=== PATIENT | male | born 1970 | race Caucasian/White ===

== ENCOUNTER 2017-12-22 14:07 | Emergency (ER) | payer OTHER ==
[~2017-12-22] VITALS: Wt 113.4 kg
[~2017-12-22 14:07] MED LIST: AUGMENTIN 500 M1 TAB PO; DIABETA,MICRO1.25 MG PO; DIABETA5 MG PO; KEFLEX500 MG PO; LEVOFLOXACIN500 MG PO; LIPITOR10 MG PO; METFORMIN1000 MG PO; NKHM; NSAID; PERCOCET 325 MG1 TA7 PO; VICODIN ES 7501 TAB PO; VICTOZA 3-PAK6 MG/ML SC
[2017-12-22 14:21] LABS: BASO # 0.1 10*3/uL (0.0-0.1); BASO % 0.4 % (0.0-1.0); EOS # 0.2 10*3/uL (0.0-0.4); EOS % 1.6 % (1.0-4.0); HEMATOCRIT 45.2 % (42.0-52.0); LYMPH % 14.9 % (27.0-41.0); MEAN CELL VOLUME 90.4 fl (80.0-94.0); MEAN CORPUSCULAR HGB CONC 33.2 g/dl (33.0-37.0); MEAN PLATELET VOLUME 10.1 fl (9.6-12.3); MONO # 0.9 10*3/uL (0.1-1.0); MONO % 6.6 % (3.0-9.0); NEUT # 10.2 10*3/uL (2.3-7.9); NEUT % 76.1 % (47.0-73.0); PLATELET COUNT AUTOMATED 164 10*3/uL (130-400); RED CELL DISTRI WIDTH 12.8 % (0-14.5); WHITE BLOOD COUNT 13.4 10*3/uL (4.8-10.8)
[2017-12-22 14:37] LABS: ALBUMIN 3.8 gm/dl (3.1-4.5); ALKALINE PHOSPHATASE 119 U/L (45-117); BUN 9 mg/dl (7-24); CHLORIDE 102 mmol/L (98-107); CREATININE 1.19 mg/dL (0.70-1.30); POTASSIUM 4.5 mmol/L (3.5-5.1); SGOT/AST 35 IU/L (3-35); SGPT/ALT 52 U/L (12-78); SODIUM 137 mmol/L (136-145); TOTAL PROTEIN 8.1 gm/dL (6.4-8.2)
[2017-12-22 15:04] LABS: BILIRUBIN NEGATIVE (NEGATIVE); BLOOD 3+ (NEGATIVE); CLARITY SL CLOUDY (CLEAR); COLOR YELLOW (YELLOW); GLUCOSE 3+ (NEGATIVE); KETONE TRACE (NEGATIVE); LEUKO ESTERASE NEGATIVE (NEGATIVE); NITRITE NEGATIVE (NEGATIVE); SPECIFIC GRAVITY >= 1.030 (1.005-1.030); UROBILINOGEN 0.2 E.U./dl (0.2-1.0)
[2017-12-22 15:27] LABS: EPITHELIAL CELLS 0-2; RBC 41-50 rbc/hpf (0-2)
[2017-12-22 16:10] VITALS: BP 114/78
[2017-12-22] MEDS ORDERED: FLOMAX0.4 MG PO (17:32)
[2017-12-22] MEDS ORDERED: NORCO 5-325 TA1 EACH PO (17:32)
[2017-12-22] MEDS ORDERED: NAPROSYN500 MG PO (17:32)
== END 2017-12-22 17:45 | disposition home or self-care (01) ==
LOC: ED 14:07
PROVIDERS: Nurse Practitioner Family
DX: N20.0 Calculus of kidney (principal); Z79.899 Other long term (current) drug therapy; Z87.442 Personal history of urinary calculi

== ENCOUNTER 2018-07-22 06:57 | Emergency (ER) | payer OTHER ==
[~2018-07-22] VITALS: Ht 187.9 cm; Wt 142.9 kg
[~2018-07-22 06:57] MED LIST changes: +FLOMAX0.4 MG PO; +NAPROSYN500 MG PO; +NORCO 5-325 TA1 EACH PO
[2018-07-22] MEDS ORDERED: SODIUM BICARBO650 MG PO (07:08)
[2018-07-22] MEDS ORDERED: Percocet 325 MG1 TAB PO (07:09)
[2018-07-22 07:24] LABS: BASO # 0.1 10*3/uL (0.0-0.1); BASO % 0.4 % (0.0-1.0); EOS # 0.3 10*3/uL (0.0-0.4); EOS % 2.3 % (1.0-4.0); HEMATOCRIT 42.4 % (42.0-52.0); HEMOGLOBIN 14.3 g/dl (14.0-18.0); LYMPH # 1.8 10*3/uL (1.3-4.4); LYMPH % 12.6 % (27.0-41.0); MEAN CELL VOLUME 91.2 fl (80.0-94.0); MEAN CORPUSCULAR HGB 30.8 pg (27.0-31.0); MEAN CORPUSCULAR HGB CONC 33.7 g/dl (33.0-37.0); MEAN PLATELET VOLUME 9.5 fl (9.6-12.3); MONO # 1.2 10*3/uL (0.1-1.0); MONO % 8.5 % (3.0-9.0); NEUT # 10.6 10*3/uL (2.3-7.9); NEUT % 75.8 % (47.0-73.0); PLATELET COUNT AUTOMATED 193 10*3/uL (130-400); RED BLOOD COUNT 4.65 10*6/uL (4.50-5.90); RED CELL DISTRI WIDTH 13.1 % (0-14.5); WHITE BLOOD COUNT 14.1 10*3/uL (4.8-10.8)
[2018-07-22 07:39] LABS: ALBUMIN 3.4 gm/dl (3.1-4.5); CREATININE 2.48 mg/dL (0.70-1.30); POTASSIUM 4.3 mmol/L (3.5-5.1); TOTAL PROTEIN 8.1 gm/dL (6.4-8.2)
[2018-07-22 07:40] LABS: BILIRUBIN NEGATIVE (NEGATIVE); BLOOD 3+ (NEGATIVE); CLARITY CLOUDY (CLEAR); COLOR YELLOW (YELLOW); GLUCOSE 2+ (NEGATIVE); KETONE TRACE (NEGATIVE); LEUKO ESTERASE 1+ (NEGATIVE); NITRITE NEGATIVE (NEGATIVE); PH 5.5 (5.0-9.0); SPECIFIC GRAVITY 1.025 (1.005-1.030); UROBILINOGEN 0.2 E.U./dl (0.2-1.0)
[2018-07-22 07:47] LABS: BACTERIA 3+; RBC 31-40 rbc/hpf (0-2); WBC 41-50 wbc/hpf (0-5)
[2018-07-22 07:52] LABS: ACT PARTIAL THROMBO TIME 24.3 SECONDS (20.8-31.5)
[2018-07-22 11:17] VITALS: BP 125/65
== END 2018-07-22 11:35 | disposition short-term general hospital (02) ==
LOC: ED 06:57
PROVIDERS: Emergency Medicine
DX: N17.9 Acute kidney failure, unspecified (principal); N20.0 Calculus of kidney; E66.01 Morbid (severe) obesity due to excess calories; E11.9 Type 2 diabetes mellitus without complications; Z87.442 Personal history of urinary calculi; Z79.899 Other long term (current) drug therapy; Z79.84 Long term (current) use of oral hypoglycemic drugs

== ENCOUNTER → 2018-08-02 | Outpatient (CLI) | payer OTHER ==
[~2018-08-02] MED LIST changes: +CIPRO500 MG PO; +Percocet 325 MG1 TAB PO; +SODIUM BICARBO650 MG PO
[2018-08-02 15:48] LABS: ACT PARTIAL THROMBO TIME 24.7 SECONDS (20.8-31.5)
== END | disposition home or self-care (01) ==
LOC: LAB 14:54
PROVIDERS: Urology
DX: R31.9 Hematuria, unspecified (principal)

== ENCOUNTER → 2018-08-31 | Outpatient (CLI) | payer OTHER ==
[2018-09-08 14:04] LABS: BUSHITE 0.03 ratio (0.00-3.00); CALCIUM OXALATE 1.19 ratio (0.00-6.00); CALCIUM, URINE 1.6 mg/dL (Not Estab.); CALCIUM, URINE 40.5 mg/24 hr (100.0-300.0); CITRIC ACID (CITRATE) 648 mg/24 hr (320-1240); CREATININE, URINE 1702.7 mg/24 hr (1000.0-2000.0); CREATININE, URINE 67.3 mg/dL (Not Estab.); MAGNESIUM, URINE 3.1 mg/dL (Not Estab.); OSMOLALITY, URINE 397 (300-900); SODIUM, URINE 162 (58-337); SODIUM, URINE 64 mmol/L (Not Estab.); STRUVITE 0.01 ratio (0.00-1.00); URIC ACID 1.53 ratio (0.00-1.20); pH 24 HR URINE 5.3 (.)
== END | disposition home or self-care (01) ==
LOC: LAB 17:26
PROVIDERS: Nurse Practitioner Family
DX: N20.0 Calculus of kidney (principal)

== ENCOUNTER → 2018-09-01 | Outpatient (CLI) | payer OTHER | END | disposition home or self-care (01) | LOC: US 14:49 | DX: N13.2 Hydronephrosis with renal and ureteral calculous obstruction (principal); N13.39 Other hydronephrosis; N28.1 Cyst of kidney, acquired ==

== ENCOUNTER → 2018-09-17 | Outpatient (CLI) | payer OTHER ==
[2018-09-17 12:58] LABS: BILIRUBIN NEGATIVE (NEGATIVE); BLOOD 3+ (NEGATIVE); CLARITY SL CLOUDY (CLEAR); COLOR YELLOW (YELLOW); GLUCOSE TRACE (NEGATIVE); KETONE NEGATIVE (NEGATIVE); LEUKO ESTERASE 1+ (NEGATIVE); NITRITE NEGATIVE (NEGATIVE); PH 5.5 (5.0-9.0); SPECIFIC GRAVITY 1.015 (1.005-1.030); UROBILINOGEN 0.2 E.U./dl (0.2-1.0)
[2018-09-17 13:07] LABS: RBC TNTC rbc/hpf (0-2)
== END | disposition home or self-care (01) ==
LOC: LAB 12:32
PROVIDERS: Urology
DX: R31.9 Hematuria, unspecified (principal)

== ENCOUNTER → 2018-10-07 | Outpatient (CLI) | payer OTHER | END | disposition home or self-care (01) | LOC: RAD 15:11 | DX: N20.0 Calculus of kidney (principal); R31.9 Hematuria, unspecified ==

== ENCOUNTER → 2018-12-10 | Outpatient (CLI) | payer OTHER | END | disposition home or self-care (01) | LOC: RAD 15:21 | DX: N20.0 Calculus of kidney (principal) ==

== ENCOUNTER 2018-12-11 05:12 | Emergency (ER) | payer OTHER ==
[~2018-12-11] VITALS: Ht 187.9 cm; Wt 138.3 kg
--- NOTE | ~2018-12-11 | EKG ---
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
[~2018-12-11 05:12] MED LIST changes: -CIPRO500 MG PO
[2018-12-11 05:58] LABS: BASO % 0.3 % (0.0-1.0); EOS # 0.3 10*3/uL (0.0-0.4); EOS % 2.2 % (1.0-4.0); HEMATOCRIT 38.4 % (42.0-52.0); HEMOGLOBIN 12.6 g/dl (14.0-18.0); LYMPH % 14.2 % (27.0-41.0); MEAN CELL VOLUME 90.1 fl (80.0-94.0); MEAN CORPUSCULAR HGB 29.6 pg (27.0-31.0); MEAN CORPUSCULAR HGB CONC 32.8 g/dl (33.0-37.0); MEAN PLATELET VOLUME 9.1 fl (9.6-12.3); MONO % 6.7 % (3.0-9.0); NEUT # 10.8 10*3/uL (2.3-7.9); NEUT % 75.8 % (47.0-73.0); PLATELET COUNT AUTOMATED 287 10*3/uL (130-400); RED BLOOD COUNT 4.26 10*6/uL (4.50-5.90); RED CELL DISTRI WIDTH 13.2 % (0-14.5); WHITE BLOOD COUNT 14.3 10*3/uL (4.8-10.8)
[2018-12-11 06:07] LABS: ALBUMIN 3.3 gm/dl (3.1-4.5); ALKALINE PHOSPHATASE 128 U/L (45-117); BUN 11 mg/dl (7-24); CHLORIDE 105 mmol/L (98-107); CREATININE 1.27 mg/dL (0.70-1.30); LIPASE 247 U/L (73-393); POTASSIUM 3.6 mmol/L (3.5-5.1); SGOT/AST 22 IU/L (3-35); SGPT/ALT 24 U/L (12-78); SODIUM 137 mmol/L (136-145); TOTAL PROTEIN 7.6 gm/dL (6.4-8.2)
[2018-12-11 06:33] VITALS: BP 127/87
[2018-12-11 07:03] LABS: BILIRUBIN NEGATIVE (NEGATIVE); BLOOD 3+ (NEGATIVE); CLARITY SL CLOUDY (CLEAR); COLOR YELLOW (YELLOW); GLUCOSE NEGATIVE (NEGATIVE); KETONE NEGATIVE (NEGATIVE); LEUKO ESTERASE 1+ (NEGATIVE); NITRITE NEGATIVE (NEGATIVE); UROBILINOGEN 0.2 E.U./dl (0.2-1.0)
[2018-12-11 07:04] LABS: BACTERIA 2+; EPITHELIAL CELLS 21-30; RBC 31-40 rbc/hpf (0-2); WBC 31-40 wbc/hpf (0-5)
[2018-12-11] MEDS ORDERED: CIPRO500 MG PO (08:33)
== END 2018-12-11 08:40 | disposition home or self-care (01) ==
LOC: ED 05:12
PROVIDERS: Emergency Medicine Emergency Medical Services
DX: N39.0 Urinary tract infection, site not specified (principal); R19.7 Diarrhea, unspecified; R11.2 Nausea with vomiting, unspecified; Z87.442 Personal history of urinary calculi; Z79.899 Other long term (current) drug therapy

== ENCOUNTER → 2018-12-19 | Outpatient (CLI) | payer OTHER ==
[~2018-12-19] MED LIST changes: +CIPRO500 MG PO
== END | disposition home or self-care (01) ==
LOC: CT 12:21
DX: N13.2 Hydronephrosis with renal and ureteral calculous obstruction (principal); K44.9 Diaphragmatic hernia without obstruction or gangrene; K76.0 Fatty (change of) liver, not elsewhere classified; K57.90 Diverticulosis of intestine, part unspecified, without perforation or abscess without bleeding

== ENCOUNTER 2019-02-08 12:08 | Emergency (ER) | payer OTHER ==
[~2019-02-08] VITALS: Wt 140.6 kg
[2019-02-08 12:41] LABS: COLOR YELLOW (YELLOW)
[2019-02-08 12:42] LABS: BILIRUBIN NEGATIVE (NEGATIVE); BLOOD 3+ (NEGATIVE); CLARITY CLOUDY (CLEAR); GLUCOSE NEGATIVE (NEGATIVE); KETONE NEGATIVE (NEGATIVE); LEUKO ESTERASE 3+ (NEGATIVE); NITRITE NEGATIVE (NEGATIVE); SPECIFIC GRAVITY 1.015 (1.005-1.030); UROBILINOGEN 0.2 E.U./dl (0.2-1.0)
[2019-02-08 12:46] LABS: WBC TNTC wbc/hpf (0-5)
[2019-02-08 13:08] VITALS: BP 133/87
[2019-02-08 13:10] LABS: BASO % 0.2 % (0.0-1.0); EOS # 0.4 10*3/uL (0.0-0.4); EOS % 2.1 % (1.0-4.0); HEMATOCRIT 37.6 % (42.0-52.0); HEMOGLOBIN 12.6 g/dl (14.0-18.0); LYMPH # 1.1 10*3/uL (1.3-4.4); LYMPH % 6.8 % (27.0-41.0); MEAN CELL VOLUME 87.9 fl (80.0-94.0); MEAN CORPUSCULAR HGB 29.4 pg (27.0-31.0); MEAN CORPUSCULAR HGB CONC 33.5 g/dl (33.0-37.0); MEAN PLATELET VOLUME 9.1 fl (9.6-12.3); MONO # 1.4 10*3/uL (0.1-1.0); MONO % 8.5 % (3.0-9.0); NEUT # 13.7 10*3/uL (2.3-7.9); NEUT % 81.7 % (47.0-73.0); PLATELET COUNT AUTOMATED 182 10*3/uL (130-400); RED BLOOD COUNT 4.28 10*6/uL (4.50-5.90); RED CELL DISTRI WIDTH 13.2 % (0-14.5); WHITE BLOOD COUNT 16.8 10*3/uL (4.8-10.8)
[2019-02-08 13:25] LABS: CREATININE 5.22 mg/dL (0.70-1.30); POTASSIUM 4.5 mmol/L (3.5-5.1); TOTAL PROTEIN 7.2 gm/dL (6.4-8.2)
== END 2019-02-08 15:22 | disposition short-term general hospital (02) ==
LOC: ED 12:08
PROVIDERS: Nurse Practitioner Family
DX: N20.9 Urinary calculus, unspecified (principal); N13.30 Unspecified hydronephrosis; N17.9 Acute kidney failure, unspecified; Z79.899 Other long term (current) drug therapy; Z87.442 Personal history of urinary calculi

== ENCOUNTER 2019-02-10 22:36 | Emergency (ER) | payer OTHER ==
[~2019-02-10] VITALS: Ht 187.9 cm; Wt 140.6 kg
[2019-02-10 22:36] VITALS: BP 137/77
== END 2019-02-10 23:55 | disposition home or self-care (01) ==
LOC: ED 22:36
DX: N99.89 Other postprocedural complications and disorders of genitourinary system (principal); Z79.899 Other long term (current) drug therapy; Z87.442 Personal history of urinary calculi

== ENCOUNTER → 2019-02-19 | Outpatient (CLI) | payer OTHER ==
[2019-02-19 12:27] LABS: CREATININE 1.66 mg/dL (0.70-1.30)
== END | disposition home or self-care (01) ==
LOC: LAB 12:00
PROVIDERS: Internal Medicine
DX: E11.9 Type 2 diabetes mellitus without complications (principal)

== ENCOUNTER → 2019-02-24 | Outpatient (CLI) | payer OTHER | END | disposition home or self-care (01) | LOC: RAD 11:53 | DX: N20.0 Calculus of kidney (principal) ==

== ENCOUNTER → 2019-03-03 | Outpatient (CLI) | payer OTHER | END | disposition home or self-care (01) | LOC: CT 08:59 | DX: K76.0 Fatty (change of) liver, not elsewhere classified (principal); K44.9 Diaphragmatic hernia without obstruction or gangrene; K57.30 Diverticulosis of large intestine without perforation or abscess without bleeding; N13.2 Hydronephrosis with renal and ureteral calculous obstruction ==

== ENCOUNTER 2019-03-20 23:51 | Emergency (ER) | payer OTHER ==
[~2019-03-20] VITALS: Ht 187.9 cm; Wt 134.7 kg
[2019-03-21 00:42] LABS: BASO % 0.2 % (0.0-1.0); EOS # 0.3 10*3/uL (0.0-0.4); EOS % 2.1 % (1.0-4.0); HEMATOCRIT 30.4 % (42.0-52.0); HEMOGLOBIN 9.8 g/dl (14.0-18.0); LYMPH # 1.5 10*3/uL (1.3-4.4); LYMPH % 12.1 % (27.0-41.0); MEAN CELL VOLUME 90.2 fl (80.0-94.0); MEAN CORPUSCULAR HGB 29.1 pg (27.0-31.0); MEAN CORPUSCULAR HGB CONC 32.2 g/dl (33.0-37.0); MEAN PLATELET VOLUME 9.3 fl (9.6-12.3); MONO # 0.8 10*3/uL (0.1-1.0); MONO % 6.9 % (3.0-9.0); NEUT # 9.4 10*3/uL (2.3-7.9); PLATELET COUNT AUTOMATED 236 10*3/uL (130-400); RED BLOOD COUNT 3.37 10*6/uL (4.50-5.90); RED CELL DISTRI WIDTH 13.9 % (0-14.5); WHITE BLOOD COUNT 12.1 10*3/uL (4.8-10.8)
[2019-03-21 00:59] LABS: ALBUMIN 2.3 gm/dl (3.1-4.5); CREATININE 1.75 mg/dL (0.70-1.30)
[2019-03-21 01:20] LABS: BILIRUBIN NEGATIVE (NEGATIVE); BLOOD 3+ (NEGATIVE); CLARITY SL CLOUDY (CLEAR); COLOR YELLOW (YELLOW); GLUCOSE 3+ (NEGATIVE); KETONE NEGATIVE (NEGATIVE); LEUKO ESTERASE 2+ (NEGATIVE); NITRITE NEGATIVE (NEGATIVE); SPECIFIC GRAVITY <= 1.005 (1.005-1.030); UROBILINOGEN 0.2 E.U./dl (0.2-1.0)
[2019-03-21 01:34] LABS: RBC 16-20 rbc/hpf (0-2); WBC 41-50 wbc/hpf (0-5); YEAST 2+
[2019-03-21 03:00] VITALS: BP 142/80
== END 2019-03-21 03:50 | disposition short-term general hospital (02) ==
LOC: ED 23:51
PROVIDERS: Physician Assistant
DX: A41.9 Sepsis, unspecified organism (principal); R65.20 Severe sepsis without septic shock; Z79.899 Other long term (current) drug therapy; Z79.2 Long term (current) use of antibiotics

== ENCOUNTER → 2019-04-28 | Outpatient (CLI) | payer OTHER | END | disposition home or self-care (01) | LOC: CT 10:32 | DX: K76.0 Fatty (change of) liver, not elsewhere classified (principal); N20.0 Calculus of kidney ==

== ENCOUNTER → 2019-06-02 | Outpatient (CLI) | payer OTHER | END | disposition home or self-care (01) | LOC: US 11:53 | DX: N20.0 Calculus of kidney (principal) ==

== ENCOUNTER → 2019-10-07 | Outpatient (CLI) | payer BC ==
[2019-10-07 08:57] LABS: BASO # 0.1 10*3/uL (0.0-0.1); BASO % 0.4 % (0.0-1.0); EOS # 0.4 10*3/uL (0.0-0.4); EOS % 3.6 % (1.0-4.0); LYMPH # 2.7 10*3/uL (1.3-4.4); LYMPH % 23.8 % (27.0-41.0); MEAN CELL VOLUME 89.6 fl (80.0-94.0); MEAN CORPUSCULAR HGB 28.9 pg (27.0-31.0); MEAN CORPUSCULAR HGB CONC 32.2 g/dl (33.0-37.0); MEAN PLATELET VOLUME 10.1 fl (9.6-12.3); MONO # 0.8 10*3/uL (0.1-1.0); MONO % 6.9 % (3.0-9.0); NEUT # 7.5 10*3/uL (2.3-7.9); PLATELET COUNT AUTOMATED 171 10*3/uL (130-400); RED BLOOD COUNT 5.02 10*6/uL (4.50-5.90); RED CELL DISTRI WIDTH 14.4 % (0-14.5); WHITE BLOOD COUNT 11.5 10*3/uL (4.8-10.8)
[2019-10-07 09:34] LABS: ALBUMIN 3.7 gm/dl (3.1-4.5); BUN 26 mg/dl (7-24); CHLORIDE 109 mmol/L (98-107); POTASSIUM 3.9 mmol/L (3.5-5.1); SODIUM 140 mmol/L (136-145)
[2019-10-07 09:40] LABS: ALKALINE PHOSPHATASE 100 U/L (45-117); CREATININE 1.08 mg/dL (0.70-1.30); SGOT/AST 23 IU/L (3-35); SGPT/ALT 25 U/L (12-78); TOTAL PROTEIN 7.8 gm/dL (6.4-8.2)
== END | disposition home or self-care (01) ==
LOC: LAB 08:17
PROVIDERS: Nurse Practitioner Family
DX: D40.0 Neoplasm of uncertain behavior of prostate (principal); R53.83 Other fatigue

== ENCOUNTER → 2020-06-01 | Outpatient (CLI) | payer BC | END | disposition home or self-care (01) | LOC: COVID19 14:40 | PROVIDERS: ATTEND Internal Medicine | DX: Z20.828 Contact with and (suspected) exposure to other viral communicable diseases (principal) ==

== ENCOUNTER 2021-05-15 01:32 | Emergency (ER) | payer BC ==
[~2021-05-15] VITALS: Ht 187.9 cm; Wt 136.1 kg
[2021-05-15 11:50] VITALS: BP 133/106
[2021-05-15] MEDS ORDERED: PERCOCET 5-3251 EACH PO (12:07)
== END 2021-05-15 13:28 | disposition home or self-care (01) ==
LOC: ED 01:32
DX: S82.852A Displaced trimalleolar fracture of left lower leg, initial encounter for closed fracture (principal); W10.8XXA Fall (on) (from) other stairs and steps, initial encounter; Y93.89 Activity, other specified; Y92.89 Other specified places as the place of occurrence of the external cause; Y99.8 Other external cause status

== ENCOUNTER → 2021-05-18 | Day surgery (SDC) | payer BC ==
[2021-05-17 12:26] LABS: BASO % 0.3 % (0.0-1.0); EOS # 0.2 10*3/uL (0.0-0.4); HEMATOCRIT 45.7 % (42.0-52.0); LYMPH # 2.4 10*3/uL (1.3-4.4); LYMPH % 22.1 % (27.0-41.0); MEAN CELL VOLUME 89.1 fl (80.0-94.0); MEAN CORPUSCULAR HGB 29.2 pg (27.0-31.0); MEAN CORPUSCULAR HGB CONC 32.8 g/dl (33.0-37.0); MEAN PLATELET VOLUME 9.6 fl (9.6-12.3); MONO # 0.8 10*3/uL (0.1-1.0); MONO % 7.2 % (3.0-9.0); NEUT # 7.3 10*3/uL (2.3-7.9); NEUT % 67.8 % (47.0-73.0); PLATELET COUNT AUTOMATED 146 10*3/uL (130-400); RED BLOOD COUNT 5.13 10*6/uL (4.50-5.90); RED CELL DISTRI WIDTH 13.4 % (0-14.5); WHITE BLOOD COUNT 10.8 10*3/uL (4.8-10.8)
[2021-05-17 12:56] LABS: ALBUMIN 3.6 gm/dl (3.1-4.5); ALKALINE PHOSPHATASE 114 U/L (45-117); BUN 21 mg/dl (7-24); CHLORIDE 105 mmol/L (98-107); CREATININE 1.21 mg/dL (0.70-1.30); POTASSIUM 3.7 mmol/L (3.5-5.1); SGOT/AST 8 IU/L (3-35); SGPT/ALT 23 U/L (12-78); SODIUM 141 mmol/L (136-145); TOTAL PROTEIN 8.1 gm/dL (6.4-8.2)
[2021-05-18] VITALS (8 sets, daily range): BP systolic 112–159; BP diastolic 76–103
[~2021-05-18] VITALS: Ht 157.4 cm; Wt 136.1 kg
[~2021-05-18] MED LIST changes: +PERCOCET 5-3251 EACH PO
== END | disposition home or self-care (01) ==
LOC: SDC 05-17 12:00
PROVIDERS: ATTEND Orthopaedic Surgery
DX: S82.852A Displaced trimalleolar fracture of left lower leg, initial encounter for closed fracture (principal); E11.9 Type 2 diabetes mellitus without complications; W19.XXXA Unspecified fall, initial encounter; Y93.89 Activity, other specified; Y92.89 Other specified places as the place of occurrence of the external cause; Y99.8 Other external cause status

== ENCOUNTER → 2021-05-31 | Outpatient (CLI) | payer BC | LOC: ORTHO 01:09 | PROVIDERS: ATTEND Orthopaedic Surgery | DX: M24.672 Ankylosis, left ankle (principal); M25.472 Effusion, left ankle; M77.32 Calcaneal spur, left foot; S82.852D Displaced trimalleolar fracture of left lower leg, subsequent encounter for closed fracture with routine healing; X58.XXXD Exposure to other specified factors, subsequent encounter ==

== ENCOUNTER → 2021-07-03 | Outpatient (CLI) | payer BC | END | disposition home or self-care (01) | LOC: ORTHO 00:24 | PROVIDERS: ATTEND Orthopaedic Surgery | DX: S82.852D Displaced trimalleolar fracture of left lower leg, subsequent encounter for closed fracture with routine healing (principal); X58.XXXD Exposure to other specified factors, subsequent encounter ==

== ENCOUNTER → 2021-09-01 | Outpatient (CLI) | payer OTHER | END | disposition home or self-care (01) | LOC: ORTHO 01:54 | PROVIDERS: ATTEND Orthopaedic Surgery | DX: S82.852D Displaced trimalleolar fracture of left lower leg, subsequent encounter for closed fracture with routine healing (principal); X58.XXXD Exposure to other specified factors, subsequent encounter ==

== ENCOUNTER → 2022-03-14 | Outpatient (CLI) | payer OTHER | END | disposition home or self-care (01) | LOC: ORTHO 01:46 | PROVIDERS: ATTEND Orthopaedic Surgery | DX: S82.852D Displaced trimalleolar fracture of left lower leg, subsequent encounter for closed fracture with routine healing (principal); X58.XXXD Exposure to other specified factors, subsequent encounter ==

== ENCOUNTER 2023-01-27 13:53 | Emergency (ER) | payer BC ==
[~2023-01-27] VITALS: Ht 190.5 cm; Wt 136.1 kg
[2023-01-27 14:05] VITALS: BP 172/100
[2023-01-27] MEDS ORDERED: CEPHALEXIN500 M1 PO (14:29)
== END 2023-01-27 14:59 | disposition home or self-care (01) ==
LOC: ED 13:53
DX: S61.217A Laceration without foreign body of left little finger without damage to nail, initial encounter (principal); E11.9 Type 2 diabetes mellitus without complications; Z87.442 Personal history of urinary calculi; Z98.890 Other specified postprocedural states; W26.8XXA Contact with other sharp object(s), not elsewhere classified, initial encounter; Y93.89 Activity, other specified; Y92.89 Other specified places as the place of occurrence of the external cause; Y99.8 Other external cause status

== ENCOUNTER 2023-06-20 03:02 | Inpatient (IN) | payer OTHER ==
[~2023-06-20] VITALS: Ht 190.5 cm; Wt 130.6 kg
[~2023-06-20 03:02] MED LIST changes: +CEPHALEXIN500 M1 PO
[2023-06-20 03:18] VITALS: BP 167/98
[2023-06-20 03:48] LABS: BASO % 0.3 % (0.0-1.0); EOS # 0.2 10*3/uL (0.0-0.4); EOS % 2.2 % (1.0-4.0); HEMATOCRIT 47.6 % (42.0-52.0); LYMPH # 2.1 10*3/uL (1.3-4.4); LYMPH % 24.1 % (27.0-41.0); MEAN CELL VOLUME 89.3 fl (80.0-94.0); MEAN CORPUSCULAR HGB 29.1 pg (27.0-31.0); MEAN CORPUSCULAR HGB CONC 32.6 g/dl (33.0-37.0); MEAN PLATELET VOLUME 9.7 fl (9.6-12.3); MONO # 0.6 10*3/uL (0.1-1.0); MONO % 7.3 % (3.0-9.0); NEUT # 5.8 10*3/uL (2.3-7.9); NEUT % 65.5 % (47.0-73.0); PLATELET COUNT AUTOMATED 147 10*3/uL (130-400); RED BLOOD COUNT 5.33 10*6/uL (4.50-5.90); WHITE BLOOD COUNT 8.8 10*3/uL (4.8-10.8)
[2023-06-20 03:59] LABS: ACT PARTIAL THROMBO TIME 27.6 SECONDS (20.0-32.1)
[2023-06-20 04:09] LABS: ALKALINE PHOSPHATASE 100 U/L (46-116); BUN 21 mg/dl (9-23); CHLORIDE 109 mmol/L (98-107); POTASSIUM 3.6 mmol/L (3.4-5.1); SGPT/ALT 22 U/L (5-49); TOTAL PROTEIN 6.7 gm/dL (6.0-8.0)
[2023-06-20 07:12] VITALS: BP 155/88
[2023-06-20 10:02] LABS: FREE T4 0.97 ng/dl (0.89-1.76)
== END 2023-06-20 11:05 | disposition left against medical advice (07) | DRG 313 ==
LOC: ED 03:02 → EDHOLD 06:43
PROVIDERS: Emergency Medicine; Student in an Organized Health Care Education/Training Program; ADMIT Internal Medicine; ATTEND Internal Medicine
DX: R07.89 Other chest pain (principal); E11.65 Type 2 diabetes mellitus with hyperglycemia; E66.9 Obesity, unspecified; E87.8 Other disorders of electrolyte and fluid balance, not elsewhere classified; N28.1 Cyst of kidney, acquired; Z53.29 Procedure and treatment not carried out because of patient's decision for other reasons; N20.0 Calculus of kidney; Z68.36 Body mass index [BMI] 36.0-36.9, adult; Z79.82 Long term (current) use of aspirin; Z79.899 Other long term (current) drug therapy; Z87.442 Personal history of urinary calculi; Z87.81 Personal history of (healed) traumatic fracture

== ENCOUNTER 2023-10-11 16:09 | Emergency (ER) | payer OTHER ==
[~2023-10-11] VITALS: Ht 187.9 cm; Wt 131.5 kg
[2023-10-11 16:27] VITALS: BP 148/102
[2023-10-11] MEDS ORDERED: METFORMIN HYD1000 MG PO (16:33)
[2023-10-11] MEDS ORDERED: RYBELSUS14 MG PO (16:33)
[2023-10-11] MEDS ORDERED: HYZAAR 50-12.51 EACH PO (16:34)
[2023-10-11] MEDS ORDERED: VITAMIN D250 MCG PO (16:36)
[2023-10-11] MEDS ORDERED: LIPITOR40 MG PO (16:36)
[2023-10-11] MEDS ORDERED: ASPIRIN81 M1 PO (16:37)
[2023-10-11] MEDS ORDERED: ALLOPURINOL100 MG PO (16:37)
[2023-10-11] MEDS ORDERED: IBUPROFEN400 MG PO (16:38)
[2023-10-11] MEDS ORDERED: TYLENOL EXTRA500 M2 PO (16:38)
[2023-10-11] MEDS ORDERED: Acetaminophen/Oxycodone 5 MG/325 MG TABLET PO ONE (16:45)
[2023-10-11] MEDS ORDERED: Ondansetron Hydrochloride 4 MG TAB PO ONE (16:45)
[2023-10-11] MEDS ORDERED: ZANAFLEX4 MG PO (17:41)
[2023-10-11] MEDS ORDERED: ONDANSETRON4 MG SL (17:41)
[2023-10-11] MEDS ORDERED: MELOXICAM15 MG PO (17:41)
[2023-10-12] MEDS ORDERED: PERCOCET 5-3251 EACH PO (14:01)
== END 2023-10-11 17:46 | disposition home or self-care (01) ==
LOC: ED 16:09
DX: S76.011A Strain of muscle, fascia and tendon of right hip, initial encounter (principal); S83.91XA Sprain of unspecified site of right knee, initial encounter; E11.9 Type 2 diabetes mellitus without complications; Z87.442 Personal history of urinary calculi; Z98.890 Other specified postprocedural states; X58.XXXA Exposure to other specified factors, initial encounter; Y93.89 Activity, other specified; Y92.89 Other specified places as the place of occurrence of the external cause; Y99.8 Other external cause status

== ENCOUNTER 2023-10-12 12:35 | Emergency (ER) | payer OTHER ==
[~2023-10-12] VITALS: Ht 190.5 cm; Wt 131.5 kg
[~2023-10-12 12:35] MED LIST changes: +ALLOPURINOL100 MG PO; +ASPIRIN81 M1 PO; +HYZAAR 50-12.51 EACH PO; +IBUPROFEN400 MG PO; +LIPITOR40 MG PO; +MELOXICAM15 MG PO; +METFORMIN HYD1000 MG PO; +ONDANSETRON4 MG SL; +RYBELSUS14 MG PO; +TYLENOL EXTRA500 M2 PO; +VITAMIN D250 MCG PO; +ZANAFLEX4 MG PO
[2023-10-12 12:50] VITALS: BP 150/95
[2023-10-12] MEDS ORDERED: DIAZEPAM 5 MG TAB PO ONE (13:05)
[2023-10-12] MEDS ORDERED: HYDROmorphONE Hydrochloride 1 MG/ML SYR IM ONE (13:05)
[2023-10-12] MEDS ORDERED: Ondansetron Hydrochloride 4 MG TAB PO ONE (13:05)
[2023-10-12] MEDS ORDERED: PERCOCET 5-3251 EACH PO (14:01)
== END 2023-10-12 14:37 | disposition home or self-care (01) ==
LOC: ED 12:35
DX: M54.41 Lumbago with sciatica, right side (principal); Z79.899 Other long term (current) drug therapy; Z79.82 Long term (current) use of aspirin; Z98.890 Other specified postprocedural states